=== PATIENT | female | born 1955 | race Caucasian/White ===

== ENCOUNTER 2017-12-06 11:23 | Outpatient (CLI) | payer OTHER ==
--- NOTE | 2017-12-08 09:37 | Mammography Report ---
Procedure Date: 12/06/2017 Accession Number: [id number] / [id number] Procedure: MGN - Screening Mammo Dig Bilat CPT Code: FULL RESULT: EXAM: Screening Mammo Dig Bilat DATE: 12/06/2017 11:43 AM CLINICAL HISTORY: 62-year-old female presents for screening mammogram. TECHNIQUE: Bilateral CC and MLO views were obtained. COMPARISON: 03/05/2015, 02/20/2014, 12/20/2012. FINDINGS: The breasts demonstrate heterogeneously dense fibroglandular parenchyma bilaterally. No suspicious masses, clustered microcalcifications, or regions of architectural distortion are identified. IMPRESSION: Negative examination RECOMMENDATION: Routine annual screening unless otherwise clinically indicated. BIRADS CATEGORY 1: Negative STANDARD QUALIFYING STATEMENTS: 1. This examination was reviewed with the aid of Computer-Aided Detection (CAD). 2. A negative or benign imaging report should not delay biopsy if clinically suspicious findings are present. Consider surgical consultation if warrented. More than 5% of cancers are not identified by imaging. 3. Dense breasts may obscure an underlying neoplasm.
== END 2017-12-06 11:24 | disposition home or self-care (01) ==
LOC: DI.N 11:23
PROVIDERS: ATTEND Internal Medicine
DX: Z12.31 Encounter for screening mammogram for malignant neoplasm of breast (principal)
CPT/HCPCS: 77067

== ENCOUNTER 2020-03-16 12:20 | Outpatient (CLI) | payer OTHER | END 2020-03-16 12:21 | disposition home or self-care (01) | LOC: COV 12:20 | PROVIDERS: ATTEND Family Medicine | DX: Z20.828 Contact with and (suspected) exposure to other viral communicable diseases (principal) ==

== ENCOUNTER 2020-10-20 16:59 | Outpatient (CLI) | payer OTHER ==
--- NOTE | 2020-10-21 08:07 | XRAY Report ---
PROCEDURE: Foot 3 View LT INDICATIONS: L FOOT PX TECHNIQUE: 3 views of the foot were acquired. COMPARISON: None FINDINGS: Bones: No fractures or dislocations. No suspicious bony lesions. Soft tissues: No tibiotalar joint effusion. Achilles tendon appears normal. IMPRESSION: Source of pain is not seen. Reviewed by: Rajeev Delacruz MD on 10/21/2020 8:06 AM PDT Approved by: Rajeev Delacruz MD on 10/21/2020 8:06 AM PDT Station ID: [id number]
== END 2020-10-20 17:00 | disposition home or self-care (01) ==
LOC: DI.N 16:59
PROVIDERS: ATTEND Physician Assistant
DX: M79.672 Pain in left foot (principal); S99.922A Unspecified injury of left foot, initial encounter

== ENCOUNTER 2020-12-21 11:20 | Outpatient (CLI) | payer OTHER ==
--- NOTE | 2020-12-22 15:25 | Mammography Report ---
BILATERAL DIGITAL SCREENING MAMMOGRAM 3D/2D: 12/21/2020 CLINICAL: Routine screening. Comparison is made to exams dated: 12/06/2017 mammogram - [facility], 03/05/2015 ma mmogram, 02/20/2014 mammogram, and 12/20/2012 mammogram - [facility]. The tissue of both breasts is predominantly fatty. No significant masses, calcifications, or other findings are seen in either breast. There has been no significant interval change. IMPRESSION: NEGATIVE There is no mammographic evidence of malignancy. A 1 year screening mammogram is recommended. This exam was interpreted at Station ID: [id number]. NOTE: For mammograms, a report in lay terms will be sent to the patient. Approximately 15% of breast malignancies will not be visualized mammographically. In the management of a palpable breast mass, a negative mammogram must not discourage biopsy of a clinically suspicious lesion. Electronically Signed By: Roshan Fowler M.D., jr/isi:12/21/2020 12:49:10 ACR BI-RADS Category 1: Negative 3341F PARENCHYMAL PATTERN: (F) - The breast(s) demonstrate(s) diffuse fatty replacement. BI-RADS CATEGORY: (1) - 1 RECOMMENDATION: (ANNUAL) - Recommend routine annual screening mammography. 20211222 1 year screening LATERALITY: (B)
== END 2020-12-21 11:21 | disposition home or self-care (01) ==
LOC: DI.N 11:20
DX: Z12.31 Encounter for screening mammogram for malignant neoplasm of breast (principal)

== ENCOUNTER 2022-09-12 12:57 | Outpatient (CLI) | payer MEDICARE ==
--- NOTE | 2022-09-12 14:01 | SLEEP CARE CONSULTATION ---
Information from patient questionnaire entered by Bijan Aquino. I have reviewed and concur with the information entered by Bijan Aquino. This document represents the service I personally performed and the decisions made by me, Juanjo Mckinley MD, [facility]. History of Present Illness Service Date and Time: 09/12/2022 1257 Reason for Visit: New patient Chief Complaint: reports: Snoring, Frequent awakenings at night, Other Date of Onset: YRS Usual bedtime: 930-10PM Time it takes to fall asleep: 15-20MINS Snores at night: Yes Observed to quit breathing while asleep: Yes Number of times waking at night: 3-4 Reasons for waking at night: reports: Snoring, Bathroom, Other (SHIFTING POSITIO NS, CAT DISTURBANCE, THROAT RETRICTION, CATCHING BREATH ) Toss, Turn, or Twitch while sleeping: Yes Recalls having dreams: No Usually gets out of bed at: 530-6AM Feels refreshed in the morning: Yes Morning headache: Yes Sleepy or fatigued during the day: Yes Ever fallen asleep while driving: No Takes day naps: Yes Dreams during day naps: No Prior sleep studies: No Additional HPI information: I have the pleasure of seeing Ms. Yap today regarding the possibility of her having obstructive sleep apnea. As you know, she is a 66-year-old lady who complains of frequent awakenings and loud snore. The patient tells me that she normally goes to bed around 9:30 - 10 pm, and it takes her approximately 15 - 20 minutes to fall asleep. She has been told that she snores loudly and irregularly at night. She has also been observed to stop breathing in her sleep. She normally sleeps alone. She can recall waking up on the average of 3 - 4 times during the night. Most of the time she wakes up because of her cat. She has awakened occasionally because of her own snoring, choking, and having to gasp for air. She feels like her throat is restricted at night. There is a lot of tossing and turning in her sleep. No somniloquy (sleep talking) or somnambulism (sleep walking). Generally, there is no recollection of dreams. In the morning she usually gets up out of the bed around 5:30 - 6 a.m. not feeling refreshed nor rested. She usually does not have a morning headache. During the day she complains of feeling sleepy and fatigued. Her score on [place] Sleepiness Scale is 9 out of 24. She never has fallen asleep while driving nor has had any accident due to sleepiness. She usually does not take naps during the day. She reports having impaired concentration during the day. - Parasomnia Symptoms Walks in sleep: No Talks in sleep: No Ever acted out dreams in sleep: No Ever felt weak in the knees when startled or emotional: No Bothered by creepy, crawly, restless sensations in legs: No Problems with memory or concentration: Yes Subjective Initial [place] Sleepiness Scale score: 9 (09/01/22) Past Medical History Past Medical History: reports: Arrythmia, Anxiety, Depression, Other (OSTEOPOROSIS, HYPERLIPIDEMIA) Social History The patient's occupation is a RE. Patient is Single and lives in [place]. Have you smoked in the past 12 months: No Alcohol use: Yes Alcohol amount and frequency: 1 GLASS OF WINE 5 DAYS PER WEEK Caffeine use: Yes Caffeine amount and frequency: 1 12OZ 5 DAYS PER WEEK Family History Family history of sleep disordered breathing: Yes Family Hx Sleep Apnea: Father: Snoring (SON), Sibling: Snoring, Other: Snoring, Sleep apnea - Treated (SON) Allergies and Home Medications Known drug allergies: Yes Drug allergies reviewed: Yes Home medication list reviewed: Yes Review of Systems Weight gain over past 5 years: 5 Cardiovascular: reports: palpitations, irregular heart rate or pulse Respiratory: reports: other (SUDDEN NEED TO CATCH MY BREATH SHALLOW OR SLOW BREATHING ). denies: shortness of breath, wheeze, sputum production, chronic cough Gastrointestinal: denies: heartburn, difficulty swallowing, nausea, vomitting, diarrhea, abdominal pain, other Urinary: reports: incontinence, urgency Neurological: reports: headaches, other (LIGHT HEADEDNESS) Psychiatric: reports: anxiety, depression Ear/Nose/Throat: reports: nasal congestion, tonsillectomy, wisdom teeth removed, other (THICK CLEAR MUCUS IN THE MORNING) Endocrine: denies: thyroid disease, history of goiter, sluggishness, too hot or cold, excessive thirst, increased appetite, increased urination, unexplained weakness, other Musculoskeletal: reports: neck pain, back pain, muscle pain or cramping Immunologic: reports: sneezing, allergies to food or environment Physical Exam Vital signs obtained and entered by: BIJAN Borges MA Blood Pressure: 110/62 (LEFT ARM) Cuff size: regular Heart Rate: 76 O2 Saturation: 96 Height: 5 ft 6 in Weight: 137 lb Body Mass Index: 22.1 BMI Classification: Normal Neck circumference: 13.5 Mood/affect: Normal HEENT: No craniofacial malformation Nostrils: patent to airflow Turbinates: normal Septum: midline Mouth and throat: narrow oropharynx Soft palate: long Hard palate: normal Uvula: normal Uvula visualization: 50% Mallampati Class II Tongue: normal in size Tonsils: absent bilaterally Chin and jaw: normal size and position Neck: normal w/o lymphadenopathy or thyromegaly Heart: regular rate and rhythm Lungs: clear bilaterally Extremities: no edema or clubbing Neurologic: intact Impression and Plan IMPRESSION: 1. Obstructive Sleep Apnea-Hypopnea Syndrome, as evident by history of loud and irregular snoring, observed cessation of breath while asleep, frequent awakenings during the night, unrefreshed sleep, cognitive impairment, and daytime hypersomnolence. Narrow oropharynx and obesity are common predisposing factors for obstructive sleep apnea-hypopnea syndrome. I recommend proceeding to polysomnography to confirm the diagnosis and to assess severity. If she has significant sleep disordered breathing, a manual CPAP titration study will also be performed to find the optimal treatment pressure. I informed the patient of what the sleep studies involve and after some discussion, she agreed to proceed. Plan: 1. Schedule polysomnography and return in 1 to 2 weeks after the study to discuss result and initiate therapy. 2. Avoid long distance driving or when feeling sleepy. 3. Avoid alcohol, sedatives, and muscle relaxants around bedtime. 4. zolpidem 5 mg 1 tablet for the sleep study. Follow up with Sleep Care in: 1-2 months Plan: in-lab PSG Visit Type: In Office Time Spent with Patient (minutes): 15 Provider Statement: I spent 100% of the Face to Face Visit with the patient with greater than 50% spent counseling the patient and coordination of care.
[2022-09-12 14:02] VITALS: BP 110/62
== END 2022-09-12 12:58 | disposition home or self-care (01) ==
LOC: SC 12:57
PROVIDERS: ATTEND Internal Medicine Pulmonary Disease
DX: R53.83 Other fatigue (principal); G47.8 Other sleep disorders; R06.83 Snoring; R06.81 Apnea, not elsewhere classified; I49.9 Cardiac arrhythmia, unspecified
CPT/HCPCS: 99202; G0463; 99212